=== PATIENT | female | born 1995 | race American Indian/Alaskan Native ===

== ENCOUNTER 2021-03-12 19:42 | Inpatient (IN) | payer MEDICAID, OTHER ==
[2021-03-12 22:25] LABS: Monocytes # (Auto) 0.3 K/mm3 (0.0-0.8)
[2021-03-12 22:29] LABS: Blood Urea Nitrogen 8 mg/dL (7-17); Hemolysis Index 0
[2021-03-12 22:30] LABS: BUN/Creatinine Ratio 13
[2021-03-12 23:47] LABS: Basophils % (Auto) 0.7 % (0.0-1.8); Eosinophils % (Auto) 0.6 % (0.0-4.3); Hematocrit 22.2 % (30.3-42.9); Hemoglobin 6.6 gm/dl (10.1-14.3); Lymphocytes # (Auto) 1.4 K/mm3 (1.2-5.4); Lymphocytes % (Auto) 28.5 % (13.4-35.0); Mean Corpuscular HGB Conc 30 % (30-34); Monocytes % (Auto) 5.2 % (0.0-7.3); Platelet Count 196 K/mm3 (140-440); Red Blood Count 3.46 M/mm3 (3.65-5.03); Red Cell Distribution Width 19.7 % (13.2-15.2)
[2021-03-12 23:54] LABS: Mean Corpuscular Volume 64 fl (79-97)
[2021-03-13] MEDS ORDERED: SODIUM CHLORIDE 0.9% 500 ML 500 ML IV ONE (00:55)
--- NOTE | 2021-03-13 01:06 | Emergency Department Report ---
<EMMANUEL BUI III - Last Filed: 03/13/21 05:26> ED General Adult HPI - General Chief complaint: Weakness Stated complaint: Vaginal bleeding PUI?: No Time Seen by Provider: 03/13/21 00:51 - Related Data Allergies Allergy/AdvReac Type Severity Reaction Status Date / Time No Known Allergies Allergy Verified 03/13/21 02:13 ED Course - Reevaluation(s) Reevaluation #1: I reviewed the findings and management of this patient in real-time and I have personally seen and examined this patient and participated in the decision making for this patient with the midlevel. Patient is a 26-year-old female that presents emergency room for weakness and shortness of breath. Patient has history of anemia. Patient having heavy vaginal bleeding. I examined the patient. Patient's CV exam shows normal S1-S2. Patient's lung sounds are clear to auscultation. Patient abdominal exam is unremarkable. Patient had an ultrasound done. Patient's transvaginal ultrasound was unremarkable. I discussed all results with patient. I discussed plan of care with patient. Patient agrees with plan of care and admission. Patient to be admitted to the hospitalist service. 03/13/21 05:26 ED Medical Decision Making - Lab Data Result diagrams: 03/12/21 21:38 03/12/21 21:38 ED Disposition Clinical Impression: Abnormal vaginal bleeding Anemia Qualifiers: Anemia type: unspecified type Qualified Code(s): D64.9 - Anemia, unspecified Disposition: 09 ADMITTED INPATIENT Is pt being admited?: Yes Does the pt Need Aspirin: No Condition: Critical Referrals: PRIMARY CARE,MD [Primary Care Provider] - 3-5 Days Time of Disposition: 05:27 <ADELA CROWELL - Last Filed: 03/13/21 06:29> ED General Adult HPI - General Source: patient Mode of arrival: Ambulatory Limitations: No Limitations - History of Present Illness Initial comments: 26-year-old female patient with history of polycystic ovarian syndrome and multiple blood transfusions presents to the emergency department with complaints of vaginal bleeding for 2 months. Patient states she was diagnosed with PCOS by her fence post driver in [place] and started on oral contraceptives to control the bleeding. She has since relocated to [place] and has not established care with a fence post driver. She has been out of her oral contraceptive medication for "a minute." Patient cannot recall the name of the medication and is unsure whether the medication contains estrogen. States she has been bleeding through approximately 3-4 pads/tampons per 24 hour period for the last couple of months. States she has been passing blood clots. Today, patient began experiencing generalized weakness, reminiscent of prior hospitalizations for anemia requiring blood transfusion, prompting her to come to the emergency department. Denies fever, chest pain, shortness of breath, palpitations, syncope, hemoptysis, hematemesis, abdominal pain. Denies all other complaints at this time. ED Review of Systems ROS: Stated complaint: SOB, WEAKNESS, VAGINAL BLEEDING Other details as noted in HPI Other: GENERAL: Negative for fever, chills, weight change, anorexia, fatigue. ENT: Negative for ear pain, difficulty hearing, sore throat, nasal congestion, epistaxis. CARDIOVASCULAR: Negative for chest pain, palpitations, lower extremity swelling. PULMONARY: Negative for cough, dyspnea, wheezing, orthopnea, cyanosis. GASTROINTESTINAL: Negative for abdominal pain, nausea, vomiting, diarrhea, constipation. GENITOURINARY: Positive for vaginal bleeding. MUSCULOSKELETAL: Negative for joint pain, joint swelling, myalgias, back pain, neck pain. NEUROLOGICAL: Positive for generalized weakness. INTEGUMENTARY: Negative for erythema, rash, diaphoresis, laceration, ecchymosis. HEMATOLOGICAL: Negative for hemoptysis, hematemesis, hematochezia, hematuria. PSYCHIATRIC: Negative for hallucinations, suicidal ideation, homicidal ideation, anxiety, depression. ED Past Medical Hx - Past Medical History Previous Medical History?: No Additional medical history: anemia - Surgical History Past Surgical History?: No ED Physical Exam - General Limitations: No Limitations - Other Other exam information: General: Awake and alert. No acute distress. Head: Atraumatic, normocephalic. Eyes: EOMI. Pupils are equal and round. Conjunctiva are pale. ENT: Oral mucosa is moist. Normal pharyngeal exam. Neck: Supple. No lymphadenopathy. Pulmonary: No respiratory distress. Clear to auscultation bilaterally. Cardiac: Tachycardic. Pulses are palpable and equal bilaterally. No lower extremity cyanosis or edema. Skin: Warm and dry. No rashes. Abdomen: Soft, non-tender, non-protuberant. No guarding, rigidity, or rebound. Bowel sounds are normal. No organomegaly or masses noted. Back: Normal alignment. No CVA tenderness. Extremities: Symmetrical. Full range of motion intact. Neurological: Alert and oriented, appropriately interactive, no focal deficits. Psych: Cooperative. Appropriate mood and affect. Speech is evenly metered. Thoughts are logically construed. ED Course Vital Signs 03/12/21 03/13/21 21:23 06:05 Temperature 98.5 F 98.9 F Pulse Rate 109 H 93 H Respiratory 20 18 Rate Blood Pressure 151/78 141/80 O2 Sat by Pulse 100 98 Oximetry ED Medical Decision Making - Lab Data Result diagrams: 03/12/21 21:38 03/12/21 21:38 - Radiology Data [facility] [address] [place] [address] Ultrasound Report Signed Patient: LASHANDA WARNER MR#: [id number] : 1995 Acct:[id number] Age/Sex: 26 / F ADM Date: 03/12/21 Loc: ED Attending Dr: Ordering Physician: SUSAN BARBER Date of Service: 03/13/21 Procedure(s): US transvaginal Accession Number(s): [id number] cc: SUSAN BARBER ULTRASOUND PELVIS INDICATION: severe vaginal bleeding. TECHNIQUE: Transvaginal. Duplex Color Doppler used: Yes. COMPARISON: None available FINDINGS: Uterus: Present. Size: 9.5 x 4.8 x 5.6 cm. Endometrial complex: Normal measuring 2 mm. Mass lesions: None. Additional findings: None. Right Ovary -- Normal. Blood flow: Normal. Cyst or mass: None. Left Ovary--poorly visualized secondary to bowel gas Urinary Bladder: Normal. Free Fluid: None. Additional Findings: None. IMPRESSION: 1. No acute sonographic abnormality of the pelvis. 2. Left ovary not well visualized Signer Name: Jonatan Goncalves MD Signed: 03/13/2021 4:09 AM Workstation Name: [id number] Transcribed By: TL Dictated By: Jonatan Goncalves MD Electronically Authenticated By: Jonatan Goncalves MD Signed Date/Time: 03/13/21408 DD/ 6 TD/TT: - Medical Decision Making Differential diagnosis including but not limited to: -related complication, uterine rupture, anemia, coagulopathy, thrombocytopenia 00:56: Tachycardic on arrival. Labs ordered by timber management professor show hemoglobin of 6.6. Ordered registered nurse cardiac, continuous O2 monitor, peripheral IV placement, additional labs to include test/coagulation studies, and type & cross for two units of blood. On re-evaluation, patient is stable, tolerating blood transfusion without difficulty. test is negative. Remainder of labs are unremarkable. Transvaginal ultrasound without acute process. Case discussed with Dr. Mejia, fence post driver, who agrees to evaluate patient on admission to the hospitalist service. Case discussed with hospitalist, who agrees to admit. Critical Care Time: Yes Critical care time in (mins) excluding proc time.: 34 Critical care attestation.: If time is entered above; I have spent that time in minutes in the direct care of this critically ill patient, excluding procedure time. Critical Care Time: 34 minutes ED Disposition Is pt being admited?: Yes Does the pt Need Aspirin: No
[2021-03-13 01:47] LABS: Alanine Aminotransferase 9 units/L (7-56); Albumin 4.4 g/dL (3.9-5)
[2021-03-13 01:54] LABS: Bilirubin,Direct < 0.2 mg/dL (0-0.2)
[2021-03-13] MEDS ORDERED: SODIUM CHLORIDE 0.9% 1000 ML 1,000 ML ONE (02:07)
--- NOTE | 2021-03-13 04:13 | Ultrasound Report ---
ULTRASOUND PELVIS INDICATION: severe vaginal bleeding. TECHNIQUE: Transvaginal. Duplex Color Doppler used: Yes. COMPARISON: None available FINDINGS: Uterus: Present. Size: 9.5 x 4.8 x 5.6 cm. Endometrial complex: Normal measuring 2 mm. Mass lesions: None. Additional findings: None. Right Ovary -- Normal. Blood flow: Normal. Cyst or mass: None. Left Ovary--poorly visualized secondary to bowel gas Urinary Bladder: Normal. Free Fluid: None. Additional Findings: None. IMPRESSION: 1. No acute sonographic abnormality of the pelvis. 2. Left ovary not well visualized Signer Name: Jonatan Goncalves MD Signed: 03/13/2021 4:09 AM Workstation Name: [id number]
[2021-03-13] MEDS ORDERED: MORPHINE 4 MG/1 ML INJ IV ONE (06:28)
[2021-03-13] MEDS ORDERED: ONDANSETRON 4 MG/2 ML INJ IV ONE (06:28)
--- NOTE | 2021-03-13 07:21 | Consultation ---
History of Present Illness Consult date: 03/13/21 Requesting physician: ADELA CROWELL Reason for consult: menorrhagia, other (dub) History of present illness: Pt has long h/o DUB with this being her second transfusion for symptomatic anemia. States she has been bleeding times 2 months of varying amounts from heavy to spotting stopping for only 2-3 days at a time. She states that she usually takes ocps for the control and regulation of her periods. She has a pe riod currently once every 6 months. She does not given h/o fibroids or of having had an endometiral bx or SIS. She is admitted currently for transfusion for symptomatic anemia. State she is having some mild bleeding at this time.Pelvic sonogram is normal. Past History Past Medical History: other (menorrhagia) Past Surgical History: no surgical history LUNG PULLER History: denies: abnormal PAP smear Family/Genetic History: hypertension, other (high cholesterol, Aneurysm(mother recently)) Social history: no significant social history, single Medications and Allergies Allergies Allergy/AdvReac Type Severity Reaction Status Date / Time No Known Allergies Allergy Verified 03/13/21 02:13 - Vital Signs Vital signs: Vital Signs Temp Pulse Resp BP Pulse Ox 98.5 F 109 H 20 151/78 100 03/12/21 21:23 03/12/21 21:23 03/12/21 21:23 03/12/21 21:23 03/12/21 21:23 Temp Pulse Resp BP Pulse Ox 98.9 F 93 H 18 141/80 98 03/13/21 06:05 03/13/21 06:05 03/13/21 06:05 03/13/21 06:05 03/13/21 06:05 - Physical Exam Breasts: Positive: deferred Cardiovascular: Normal S1, Normal S2 Lungs: Positive: Clear to auscultation, Normal air movement Abdomen: Positive: normal appearance, soft. Negative: distention, tenderness, guarding Genitourinary (Female): Positive: other (deferred as pt has had transvaginal sonogram) Results Result Diagrams: 03/12/21 21:38 03/12/21 21:38 Abnormal lab results 03/12/21 03/13/21 Range/Units 21:38 01:06 RBC 3.46 L (3.65-5.03) M/mm3 Hgb 6.6 L (10.1-14.3) gm/dl Hct 22.2 L (30.3-42.9) % MCV 64 L (79-97) fl MCH 19 L (28-32) pg RDW 19.7 H (13.2-15.2) % Crossmatch See Detail All other labs normal. Assessment and Plan - Patient Problems (1) Abnormal vaginal bleeding Current Visit: Yes Status: Acute Plan to address problem: -cont transfusion -provera po -f/u in the office for SIS with Embx -will sign off at this time and clear for d/c home from sifting operator standpoint. -rx sent to pharmacy for the provera and ordered while in house (2) Anemia Current Visit: Yes Status: Acute Qualifiers: Anemia type: unspecified type Qualified Code(s): D64.9 - Anemia, unspecified Plan to address problem: -see above
--- NOTE | 2021-03-13 08:04 | Short Stay Summary ---
Short Stay Documentation Date of service: 03/13/21 Narrative H&P: Pt has long h/o DUB with this being her second transfusion for symptomatic anemia. States she has been bleeding times 2 months of varying amounts from heavy to spotting stopping for only 2-3 days at a time. She states that she usually takes ocps for the control and regulation of her periods. She has a period currently once every 6 months. She does not given h/o fibroids or of having had an endometiral bx or SIS. - History Principal diagnosis: DU B, metromenorrhagia, symptomatic anemia Past Medical History: other (DUB, anemia) Past Surgical History: No surgical history, Other (DU B) Social history: no significant social history, single - Allergies and Medications Current Medications: Allergies No Known Allergies Allergy (Verified 03/13/21 02:13) Home Medications Medication Instructions Recorded Confirmed Last Taken Type medroxyPROGESTERone ACETATE 10 mg PO QDAY #10 tablet 03/13/21 Unknown Rx [Provera] Active Medications Medroxyprogesterone Acetate (Medroxyprogesterone Acetate 5 Mg Tab) 10 mg PO QDAY KERVIN - Physical exam General appearance: no acute distress Integumentary: no rash Lungs: Clear to auscultation Breasts: deferred Heart: Normal S1, Normal S2 Gastrointestinal: normal, normoactive bowel sounds Female Genitourinary: deferred Rectal Exam: deferred Extremities: no ischemia, No edema Neurological: Cranial nerves 3-12 NL - Hospital course Hospital course: Pt has long h/o DUB with this being her second transfusion for symptomatic anemia. Patient stated that she had been bleeding times 2 months of varying amounts from heavy to spotting stopping for only 2-3 days at a time. She stated that she usually takes ocps for the control and regulation of her periods. She has a period currently once every 6 months. She does not give a h/o fibroids or of having had an endometiral bx or SIS. The patient is admitted with diagnosis of metromenorrhagia, DU B and symptomatic anemia. The patient will receive PRBCs. Pelvic sonogram was normal. CODING MACHINE OPERATOR was consulted and recommended Provera p.o. Patient is to follow-up in the office for SIS with Embx. CODING MACHINE OPERATOR sent prescription to pharmacy for Provera. - Disposition Condition at discharge: Stable Disposition: 01 HOME / SELF CARE / HOMELESS - Discharge Diagnoses (1) Abnormal vaginal bleeding Status: Acute (2) Anemia Status: Acute Qualifiers: Anemia type: unspecified type Qualified Code(s): D64.9 - Anemia, unspecified Short Stay Discharge Plan Follow up with: PRIMARY CARE, [Primary Care Provider] - 3-5 Days Prescriptions: medroxyPROGESTERone ACETATE [Provera] 10 mg PO QDAY #10 tablet
[2021-03-13] MEDS ORDERED: MORPHINE 4 MG/1 ML INJ IV PRN (08:05)
[2021-03-13] MEDS ORDERED: ACETAMINOPHEN 325 MG TAB PO PRN (08:30)
[2021-03-13] MEDS ORDERED: ONDANSETRON 4 MG/2 ML INJ IV PRN (08:30)
[2021-03-13] MEDS ORDERED: HYDROcodone/ACETAMINOPHEN 5-325 MG TAB PO PRN (09:00)
[2021-03-13] MEDS ORDERED: MORPHINE 2 MG/1 ML INJ IV PRN (09:00)
[2021-03-13] MEDS ORDERED: medroxyPROGESTERone ACETATE 5 MG TAB PO SCH (10:00)
[2021-03-13 16:34] LABS: Basophils % (Auto) 0.8 % (0.0-1.8); Eosinophils % (Auto) 0.8 % (0.0-4.3); Hematocrit 25.7 % (30.3-42.9); Hemoglobin 7.8 gm/dl (10.1-14.3); Lymphocytes # (Auto) 1.5 K/mm3 (1.2-5.4); Mean Corpuscular HGB Conc 30 % (30-34); Mean Corpuscular Volume 71 fl (79-97); Monocytes # (Auto) 0.4 K/mm3 (0.0-0.8); Monocytes % (Auto) 7.8 % (0.0-7.3); Platelet Count 207 K/mm3 (140-440); Red Blood Count 3.62 M/mm3 (3.65-5.03)
[2021-03-13 16:44] LABS: Red Cell Distribution Width 24.9 % (13.2-15.2)
[2021-03-13 18:04] VITALS: BP 129/82
== END 2021-03-13 18:15 | disposition home or self-care (01) | DRG 812 ==
LOC: ED 19:42 → 3A 03-13 06:33
PROVIDERS: ADMIT Internal Medicine Geriatric Medicine; ATTEND Hospitalist
PROC: 30233N1 Transfusion of Nonautologous Red Blood Cells into Peripheral Vein, Percutaneous Approach (ICD-10-PCS; principal; 2021-03-13)
DX: D64.9 Anemia, unspecified (principal); N93.9 Abnormal uterine and vaginal bleeding, unspecified; Z82.49 Family history of ischemic heart disease and other diseases of the circulatory system
CPT/HCPCS: 36415; 76830; 80048; 80076; 83735; 84702; 85025; 85610; 85730; 86850; 86900; 86901; 86920; G0378; J2270; J2405; J7030; J7040; P9016